=== PATIENT | male | born 1960 | race Caucasian/White ===

== ENCOUNTER 2017-07-21 16:09 | Emergency (ER) | payer SELFPAY ==
[~2017-07-21] VITALS: Ht 188 cm; Wt 95.3 kg
[2017-07-21 17:26] LABS: Basophils # (auto) 0 uL; Basophils % (auto) 0.5 % (0.0-2.0); Eosinophils # (auto) 0.2 uL; Eosinophils % (auto) 2.7 % (0.0-7.0); Hematocrit 49.1 % (41.0-53.0); Hemoglobin 16.9 g/dL (13.5-17.5); Lymphocytes # (auto) 1.5 uL; Lymphocytes % (auto) 18.7 % (10.0-50.0); Mean Corpuscular Hemoglobin 31.5 pg (28.0-32.0); Mean Corpuscular Hgb Conc. 34.5 g/dL (32.0-36.0); Mean Corpuscular Volume 91.5 fL (80.0-100.0); Monocytes # (auto) 0.7 uL; Monocytes % (auto) 8.7 % (0.0-12.0); Neutrophils # (auto) 5.5 uL; Neutrophils % (auto) 69.4 % (37.0-80.0); Platelet Count (auto) 283 10^3/uL (140-450); Red Blood Cells 5.37 10^6/uL (4.5-5.90); Red Cell Distribution Width 13.5 % (11.8-14.3); White Blood Cell 7.9 10^3/uL (4.4-10.8)
[2017-07-21 17:45] LABS: Albumin 3.9 g/dL (3.4-5.0); BUN/Creatinine Ratio 18.8; Bilirubin, Total 0.5 mg/dL (0.2-1.0); Calcium 8.8 mg/dL (8.5-10.1); Magnesium 2.7 mg/dL (1.6-2.6); Potassium 4.1 mmol/L (3.5-5.1); Total Protein 6.9 g/dL (6.4-8.2)
[2017-07-21 21:11] LABS: Urine Bacteria NONE SEEN /hpf (None Seen); Urine Blood Negative /uL (Negative); Urine Mucus FEW (None Seen); Urine Specific Gravity 1.027 (1.001-1.035); Urine WBC 3 /hpf (0 - 3)
[2017-07-21] MEDS ORDERED: cloNIDine HCL 0.1 MG TAB PO ONE (21:15)
[2017-07-21 21:25] LABS: Alcohol, Urine < 3.0 mg/dL (0-5); Amphetamine Screen, Urine POSITIVE (NEGATIVE); Barbiturate Scree,Urine NEGATIVE (NEGATIVE); Benzodiazephine Screen, Urine NEGATIVE (NEGATIVE); Cannabinoid Screen, Urine NEGATIVE (NEGATIVE); Cocaine Screen, Urine NEGATIVE (NEGATIVE); Opiate Scree,Urine NEGATIVE (NEGATIVE); Phencyclidine Screen, Urine NEGATIVE (NEGATIVE)
[2017-07-21 22:34] VITALS: BP 144/92
== END 2017-07-21 22:42 | disposition home or self-care (01) ==
LOC: ER 16:12
DX: I10 Essential (primary) hypertension (principal); F15.10 Other stimulant abuse, uncomplicated
CPT/HCPCS: 36415; 80053; 80307; 81001; 82962; 83735; 84443; 85025; 93005

== ENCOUNTER 2017-11-08 12:56 | Emergency (ER) | payer SELFPAY ==
[~2017-11-08] VITALS: Ht 188 cm; Wt 99.8 kg
[2017-11-08] MEDS ORDERED: cloNIDine HCL 0.1 MG TAB PO ONE (14:15)
[2017-11-08] MEDS ORDERED: HYDROcodone-ACET 7.5/325MG TAB PO ONE (14:15)
[2017-11-08 14:53] VITALS: BP 162/106
== END 2017-11-08 14:43 | disposition home or self-care (01) ==
LOC: EDBD 12:56 → ER 12:58
DX: S83.8X1A Sprain of other specified parts of right knee, initial encounter (principal); S93.601A Unspecified sprain of right foot, initial encounter; I10 Essential (primary) hypertension; Z88.0 Allergy status to penicillin; V13.4XXA Pedal cycle driver injured in collision with car, pick-up truck or van in traffic accident, initial encounter; Y93.89 Activity, other specified; Y99.8 Other external cause status; Y92.89 Other specified places as the place of occurrence of the external cause
CPT/HCPCS: 73590; 73630